=== PATIENT | male | born 1965 | race Caucasian/White ===

== ENCOUNTER 2023-11-23 05:50 | Day surgery (SDC) | payer OTHER, SELFPAY ==
[2023-11-08 13:45] LABS: ALT (SGPT) 22 U/L (0-50); AST (SGOT) 21 U/L (17-59); Albumin 4.4 g/dl (3.5-5.0); Alkaline Phosphatase 38 U/L (38-126); Blood Urea Nitrogen 13 mg/dl (9-20); Calcium 9.5 mg/dl (8.4-10.2); Carbon Dioxide 28 mmol/L (22-30); Chloride 104 mmol/L (98-107); Glucose 89 mg/dl (70-99); Magnesium 2.1 mg/dl (1.6-2.3); Potassium 4.6 mmol/L (3.5-5.1); Sodium 138 mmol/L (135-145); Total Bilirubin 0.5 mg/dl (0.2-1.3); Total Protein 7.4 g/dl (6.3-8.2); eGFR > 60.00
[2023-11-08 13:47] LABS: INR 1.05; PT 13.8 Sec (11.4-14.6)
--- NOTE | 2023-11-08 13:57 | HPS.HSE ---
Family Physician
-
Family Physician: Partha Mendez
Chief Complaint
-
Persistent atrial fibrillation.
History of Present Illness
The patient is a 58 year old male presenting today for persistent atrial fibrillation. The patient reports fatigue, mild dyspnea with heavy exertion, and palpitations all associated with this diagnosis. He previously underwent a failed
TALISHA-guided cardioversion for his arrhythmia in July 2023. He is rate controlled without the use of pharmacological therapy. He has been compliant with Eliquis for oral anticoagulation. He notes that his symptoms greatly interfere with his
activities of daily living and are overall impacting his quality of life. He is interested in pursuing pulmonary vein isolation for further arrhythmia management. He denies any current complaints today such as chest pain, shortness of breath at
rest, nausea, vomiting, diarrhea, lightheadedness, dizziness, sore throat, or fever.
Medical History
Past Medical History
Past Medical History: Reports Other
Additional Past Medical History:
1. Persistent atrial fibrillation, status post TALISHA-guided cardioversion 07/2023; oral anticoagulation with Eliquis.
2. Hypertension.
3. Hyperlipidemia.
4. Mild-moderate biatrial enlargement.
5. Asthma, mild and intermittent, with chronic cough.
6. Remote GERD.
7. Hemorrhoids with history of intermittent rectal bleeding.
8. Bilateral renal cysts.
9. Multiple sclerosis, on weekly Avonex.
10. Vitamin D deficiency.
11. Obesity, BMI 30.7.
12. Alcohol abuse.
13. Cannibis dependence.
Past Surgical History: Reports Other
Additional Past Surgical History:
1. TALISHA-guided cardioversion.
2. Right inguinal hernia repair.
3. Hemorrhoidal injections under anesthesia.
4. Dental extractions.
5. Colonoscopy x3.
Social History
Tobacco: Non-smoker
Alcohol: Daily (He reports, on average, drinking 4 beers a day. )
Drug: Marijuana (He smokes anywhere between 4-8 joints a day. )
Living: Other (He lives with his partner in a 2 story home. )
Family History
Family History: Not pertinent
Allergies / Home Medications
Allergy/Medication List:
Home medications:
1. Eliquis 5 mg p.o. twice a day.
2. Aspirin 81 mg p.o. daily.
3. Ergocalciferol 1,250 mcg p.o. on Sundays.
4. Avonex 30 mcg intramuscular on Sundays.
5. Losartan 50 mg p.o. daily.
6. Metamucil 1 packet p.o. every afternoon.
Allergies: Bees. No known medication allergies.
Review of Systems
-
A 12 point ROS was completed and negative except as noted: Yes
Physical Exam
Vital Signs
Blood pressure 126/88. Heart rate 70. Respirations 18. Pulse ox 98% on room air.
Height 5 feet, 10 inches. Weight 97.2 kg. BMI 30.7.
Physical Exam
General: Well Developed, Well Nourished and No Apparent Distress
HEENT: NormoCephalic, Moist mucous membranes, Atraumatic and PERRLA
Respiratory: Other (Wheeze of right upper lung, cleared with cough. Lungs otherwise clear to auscultation. )
Cardiac: Irregular Rhythm
GI: Soft, Non Tender, Non Distended and Other (Obese.)
Musculoskeletal: No Edema and Normal Gait & Station
Skin: Warm and Dry
Neuro: AO x 3 and Nonfocal/grossly intact
Laboratory Results
-
11/08/23 13:05
Laboratory Results
PT 13.8 Sec (11.4-14.6) 11/08/23 13:05
INR 1.05 11/08/23 13:05
Total Bilirubin 0.5 mg/dl (0.2-1.3) 11/08/23 13:05
AST 21 U/L (17-59) 11/08/23 13:05
ALT 22 U/L (0-50) 11/08/23 13:05
Alkaline Phosphatase 38 U/L (38-126) 11/08/23 13:05
DIAGNOSTIC STUDIES as of 11/08/2023: White blood cell count 5.8. Hemoglobin 14.1. Platelet count 154,000. Magensium 2.1. Type and screen O positive.
EKG 11/08/2023: Atrial fibrillation.
Chest CT 11/08/2023: Right and left superior and inferior pulmonary venous ostia. Early branching of the bilateral inferior pulmonary veins. No left atrial thrombus. Cystic structure in the posterior mediastinum most suspicious for a duplication
cyst or a pericardial cyst.
Echocardiogram 08/01/2023: Biatrial enlargement. Normal valvular structures. Normal left and right ventricular systolic function. Normal right ventricular systolic pressure.
Impression/Plan
-
IMPRESSION/PLAN:
1. Persistent atrial fibrillation: The patient is in need of pulmonary vein isolation with Dr. Juan Stanton on 11/23/2023. The benefits and risks of the procedure have been explained to the patient. The patient understands these risks and wishes to
proceed. He will not be required to undergo a pre-procedural transesophageal echocardiogram as he has been compliant with his home oral anticoagulation. He is aware to continue Eliquis up to the night prior to his surgery.
2. Alcohol abuse: The importance of minimizing alcohol use to prevent further exacerbations of his atrial fibrillation in the future was discussed at his pre-operative appointment.
[2023-11-08 15:14] LABS: % Basophils 0.5 % (0-2); % Eosinophils 2.9 % (0-6); % Immature Granulocytes 0.2 % (0-0.5); % Lymphocytes 37.8 % (20.5-51.1); % Monocytes 8.6 % (1.7-9.3); Absolute Eosinophils 0.2 10^3/uL (0-0.7); Absolute Lymphocytes 2.2 10^3/uL (1.2-3.4); Absolute Monocytes 0.5 10^3/uL (0.1-0.6); Absolute Neutrophils 2.9 10^3/uL (1.4-6.5); Hematocrit 41.3 % (39.0-52.0); Hemoglobin 14.1 g/dL (13.0-18.0); Mean Corp Hgb Conc. 34.1 g/dL (33.0-37.0); Mean Corpuscular Volume 93.7 fL (80.0-94.0); Mean Platelet Volume 11.8 fL (7.4-10.4); Nucleated Red Blood Cells % 0 % (-); Platelet Count 154 10^3/uL (130-400); Red Blood Cell Count 4.41 10^6/uL (4.70-6.10); Red Cell Dist. Width 12.9 % (11.5-14.5); White Blood Cell Count 5.8 10^3/uL (4.8-10.8)
[2023-11-09 09:18] VITALS: BMI 30.7
[2023-11-23] VITALS (14 sets, daily range): BP systolic 112–137; BP diastolic 83–110; BMI 30.8
[2023-11-23] MEDS: TYLENOL 1000 MG PO (06:56)
[2023-11-23 08:50] LABS: ACT-LR - POC 310 Seconds (116-155)
[2023-11-23 09:12] LABS: ACT-LR - POC 305 Seconds (116-155)
[2023-11-23 09:32] LABS: ACT-LR - POC 281 Seconds (116-155)
[2023-11-23] MEDS: TYLENOL 650 MG PO (10:20)
--- NOTE | 2023-11-23 10:50 | ITS.CL.ABL ---
Medical Office Representative - Ablation
Ablation
Procedure Report:
ELECTROPHYSIOLOGY ABLATION STUDY
�
DATE:: November 23, 2023���������������������������� REFERRING: Dr. Narinder Villalobos
�
INDICATION: Paroxysmal supraventricular tachycardia in the form of atrial fibrillation.
�
HISTORY: See H and P.� As above
�
ANTIARRHYTHMIC DRUG: Discussed class I class III antiarrhythmic drug therapy the patient opted for pulmonary vein isolation
�
PRE-PROCEDURE TALISHA: No atrial thrombus and intracardiac ultrasound
�
PRESENTING RHYTHM: Sinus bradycardia
�
'TIME-OUT':� called and confirmed.
�
SEDATION/ANESTHESIA:� provided via the anesthesia department using general anesthesia (LMA).
�
INTRAVENOUS/ARTERIAL ACCESS:
Right femoral venous - 8Fr
Left femoral venous - 8 Fr, 6 Fr
[id number] suture was placed to each of the venous access sites
Ultrasound guidance for bilateral femoral vein access was utilized by me to obtain access with demonstration of normal anatomy
CHADS-VASC Score:
�
HAS-Bled Score
�
PROCEDURE:�
1.� A decapolar CS catheter was placed within the CS for mapping and pacing.� This was also used as the reference catheter for the 3-D map. Of note the patient's CT scan demonstrated a rare variant of inferior common ostium right and left inferior
pulmonary veins conjoined at the posterior wall. The right superior and left superior pulmonary veins were markedly anterior.
�
2. The intracardiac ultrasound catheter was positioned in the RA to identify the FO for targeting of transseptal puncture, assist� in identification of the pulmonary vein ostia, monitoring pre and post ablation pulmonary vein flow velocities,
monitoring for 'bubble' formation during RF application as a sign of thermal injury,� and to monitor for pericardial effusion during mapping and ablation procedure.�� Left atrial size, LV ejection fraction, and pulmonary vein flows were monitored
pre and post ablation procedure. The other valves were inspected and found to be free of significant regurgitation or stenosis.
�
3.� Half of the calculated heparin bolus was administered prior to the first transeptal puncture.� Transseptal puncture was performed to diagnose RA and LA pressure so that safetey of LA mapping and ablation could be further assessed, and to access
the left atrium and pulmonary veins for mapping and ablation.� This entailed advancing an 12 Lebanese Contour sheath with dilator apparatus into the superior vena cava and withdrawing both (monitoring intracardiac ultrasound, fluoroscopy and tip
pressure) with the tip oriented toward the atrial septum.� The fossa ovalis was engaged (indicated by sudden displacement of the sheath tip as well as tenting of the fossa seen on intracardiac ultrasound).� Left atrial access required a pass with
the Brock[place]brough needle extended.� Left atrial catheter position was confirmed by pressure monitoring (RA mean pressure [ ] mm Hg and LA mean presure [ ] mm Hg), LA saturation ( [ ] %),� as well as fluoroscopy.� The sheath was advanced over the
dilator and positioned in the left atrium.� This procedure was repeated for the Agilis sheath.� The remainder of the calculated heparin bolus was administered and heparin was
infused to maintain ACT at 300 -350 seconds throughout the case.
�
4.� RA pacing was performed via the proximal decapolar poles and LA pacing was performed via the distal decapolr poles.
�
5. A quadrapolar catheter was first positioned at the His position for His Bundle recording which was tagged via the 3-D Navex sytem, and then passed to the RVA for RV pacing and recording.
�
6. The ablation catheter was positioned through one of the transeptal seaths and a 20 pole ring mapping catheter was positioned through the second seath into the LA and then the ostia of the LIPV, LSPV, RSPV and the RIPV.��
�
7.� Next, a 3-D map was created using Navex.�� A 3-D reconstructed CT image was compared to the 3-D Navex map to assist in anatomic interpretation, mapping and ablation.� The CT image and the NavX image were fused.
�
8. The pulmonary veins and the left atrial posterior wall was isolated with the PFA catheter. Entrance and exit block was confirmed in all 4 pulmonary veins and the left atrial posterior wall. A total of 88 lesions were given ostially and
anteriorly to each of the veins as well as the extensive tonya between each vein. Once entrance block was confirmed in atrial fibrillation the patient was converted to sinus rhythm and entrance next block was confirmed in all 4 pulmonary veins
plus left atrial posterior wall with a multipolar grid. EP study post cardioversion did not demonstrate any other nonpulmonary triggers for atrial fibrillation or other supraventricular mechanisms for tachycardia.
�
9. Normal sinus node and AV mamta function were noted at time of procedure
TOTAL FLOURO TIME: 15.7 minutes 123 mGy
�
TOTAL RF DURATION: 0 minutes
�
REVERSAL OF HEPARIN: 40 mg of protamine, slow IV administration
�
COMPLICATIONS:�
None
Intracardiac US shows no pericardial effusion post ablation.
�
SUMMARY:��
Complex left atrial mapping and ablation.
Isolation of all 4 pulmonary veins and the left atrial posterior wall as above. Rare variant inferior common ostium noted on CT scan.
�
RECOMMENDATIONS:
1. Admit to monitored bed.
2. Resume anticoagulation
3.� Out of bed 4 hours
4.� Consider same-day discharge
�
Copy to: Dr. Narinder Villalobos
�
--- NOTE | 2023-11-23 14:38 | W.PN.UPDATE ---
Update Note
Progress Note Update
Pt seen post PFA. Bilat groin sites without ht/bleeding, non tender. OOB ambulating, urinating without difficulty. Post EKG SB 50s as before, no acute changes. Resume eliquis today. Continue other meds as before. Followup with Dr. Villalobos as
scheduled. Home today if groin sites/tele remain stable.
== END 2023-11-23 15:04 | disposition home or self-care (01) ==
LOC: CATH 05:50
PROVIDERS: ATTENDING PHYSICIAN Internal Medicine Cardiovascular Disease; FAMILY PHYSICIAN Family Medicine; OTHER PHYSICIAN Internal Medicine Cardiovascular Disease
DX: I48.19 Other persistent atrial fibrillation (principal); I10 Essential (primary) hypertension; E78.5 Hyperlipidemia, unspecified; J45.909 Unspecified asthma, uncomplicated; K21.9 Gastro-esophageal reflux disease without esophagitis; Z87.19 Personal history of other diseases of the digestive system; G35 Multiple sclerosis; E55.9 Vitamin D deficiency, unspecified; E66.9 Obesity, unspecified; Z68.30 Body mass index [BMI] 30.0-30.9, adult; F10.10 Alcohol abuse, uncomplicated; F12.20 Cannabis dependence, uncomplicated
CPT/HCPCS: C1732; C1733; C1894; C1730; C1769; C1892; C1759; 36415; 75572; 76937; 80053; 83735; 85025; 85347; 85610; 86850; 86900; 86901; 93005; 93656; Q9967